=== PATIENT | female | born 1975 ===

== ENCOUNTER 2017-06-21 19:25 | Observation (INO) | payer BC, MEDICAID ==
--- NOTE | 2017-06-21 20:48 | ED PDOC ---
Arrival/HPI - General Time Seen by Provider: 06/21/17 20:13 Historian: Patient - History of Present Illness Narrative History of Present Illness (Text): 06/21/17 20:15 Salvador Gamez is a 41 year old female , whose past medical history includes kidney stones, who presents to the emergency department complaining of right sided coldness/numbness, left sided weakness and "pins and needles" to left leg today. Patient states that she had a pounding headache the night before, took Tylenol, and woke up this morning feeling better. But on the drive to work, symptoms began as a pressure behind her right ear that radiated to the right side of her face. Patient took two tablets of Tylenol at 10:00 this morning to little relief. Patient denies any fever or any other complaints at this time. Time/Duration: 24 hours Symptom Onset: Gradual Symptom Course: Unchanged Activities at Onset: Light Context: Home Past Medical History - Provider Review Nursing Documentation Reviewed: Yes - Infectious Disease Hx of Infectious Diseases: None - Tetanus Immunization Tetanus Immunization: Unknown - Endocrine/Metabolic Hx Hyperthyroidism: Yes - Psychiatric Hx Psychophysiologic Disorder: No Hx Substance Use: No - Past Surgical History Past Surgical History: No Previous - Suicidal Assessment Feels Threatened In Home Enviroment: No Family/Social History - Physician Review Nursing Documentation Reviewed: Yes Family/Social History: No Known Family HX Smoking Status: Never Smoked Hx Alcohol Use: Yes Hx Substance Use: No Hx Substance Use Treatment: No Allergies/Home Meds Allergies/Adverse Reactions: Allergies No Known Allergies Allergy (Verified 06/17/14 13:55) Home Medications: Home Meds Medication Instructions Recorded Confirmed No Known Home Med 02/21/16 02/21/16 Review of Systems - Physician Review All systems were reviewed & negative as marked: Yes - Review of Systems Constitutional: absent: Fevers, Night Sweats Eyes: absent: Vision Changes ENT: absent: Hearing Changes Respiratory: absent: SOB, Cough Cardiovascular: absent: Chest Pain Gastrointestinal: absent: Abdominal Pain Genitourinary Female: absent: Dysuria Musculoskeletal: absent: Arthralgias Skin: absent: Rash Neurological: Other (right sided coldness/numbness, left sided weakness and "pins and needles" to left leg). absent: Headache Endocrine: absent: Diaphoresis Hemo/Lymphatic: absent: Adenopathy Psychiatric: absent: Anxiety, Depression Physical Exam Vital Signs Reviewed: Yes Vital Signs Temp Pulse Resp BP Pulse Ox 06/21/17 21:00 98.1 F 70 18 138/99 H 100 Temperature: Afebrile Blood Pressure: Hypertensive Pulse: Regular Respiratory Rate: Normal Appearance: Positive for: Well-Appearing, Non-Toxic, Comfortable Pain Distress: None Mental Status: Positive for: Alert and Oriented X 3 - Systems Exam Head: Present: Atraumatic, Normocephalic Pupils: Present: PERRL Extroacular Muscles: Present: EOMI Conjunctiva: Present: Normal Mouth: Present: Moist Mucous Membranes Neck: Present: Normal Range of Motion Respiratory/Chest: Present: Clear to Auscultation, Good Air Exchange. No: Respiratory Distress, Accessory Muscle Use Cardiovascular: Present: Regular Rate and Rhythm, Normal S1, S2. No: Murmurs Abdomen: Present: Normal Bowel Sounds. No: Tenderness, Distention, Peritoneal Signs Back: Present: Normal Inspection Upper Extremity: Present: Normal Inspection. No: Cyanosis, Edema Lower Extremity: Present: Normal Inspection. No: Edema Neurological: Present: GCS=15, CN II-XII Intact, Speech Normal, Motor Func Grossly Intact, Normal Sensory Function, Normal Cerebellar Funct, Gait Normal, Memory Normal, Normal 2Pt Descrimination Skin: Present: Warm, Dry, Normal Color. No: Rashes Psychiatric: Present: Alert, Oriented x 3, Normal Insight, Normal Concentration Medical Decision Making ED Course and Treatment: 06/21/17 20:53 Impression: 41 year old complaining of right sided coldness/numbness, left sided weakness and "pins and needles" to left leg today. Differential Diagnosis included but are not limited to: CVA vs TIA vs MS, vs Complex Migraine Plan: -- EKG -- Chest X-ray -- Type and Screen -- Labs -- IV Fluids -- Reassess and disposition Prior Visits: Notes and results from previous visits were reviewed. Patient was last seen in the emergency department on 02/21/16 for intermittent headache. Patient was discharged home. Progress Notes: 06/21/17 21:40 Patient Name: SALVADOR GAMEZ Institution Name: [place] [id number] Study Type: CT HEAD WO Ordered As: CT HEAD W O CODE STROKE IMPRESSION: No acute intracranial abnormality Thank you for allowing us to participate in the care of your patient. Dictated and Authenticated by: Brittany mSith MD 06/21/2017 8:53 PM Eastern Time ([place] & [place]) Case discussed with Dr. Baugh, Neurologist, who agrees patient to be admitted to remote telemetry r/o cva. Recommends aspirin and MRI on admission. 06/21/17 22:[address] Aguero who is covering for Dr. Araiza. Dr. Araiza is covering for the Medical Service. Dr. Aguero recommends Dr. Rogers for Neurology. I explained in detail to the patient the CT results and plan for admission. - Critical Care Critical Care Minutes: 30 minutes - Lab Interpretations Lab Results: 06/21/17 20:50 06/21/17 20:50 Lab Results 06/21/17 21:06: Blood Type Confirm O POSITIVE 06/21/17 20:50: Blood Type O POSITIVE, Antibody Screen Negative, BBK History Checked No verified bt 06/21/17 20:50: Sodium 141, Potassium 3.7, Chloride 105, Carbon Dioxide 26, Anion Gap 14, BUN 10, Creatinine 0.6 L, Est GFR ( Amer) > 60, Est GFR ( Non-Af Amer) > 60, Random Glucose 88, Calcium 9.5, Total Bilirubin 0.4, AST 23, ALT 26, Alkaline Phosphatase 45, Troponin I < 0.01, Total Protein 7.5, Albumin 4.4, Globulin 3.1, Albumin/Globulin Ratio 1.4, Triglycerides 98, Cholesterol 182 , LDL Cholesterol Direct 101, HDL Cholesterol 64 H 06/21/17 20:50: PT 10.5, INR 0.92 L, APTT 35.0 06/21/17 20:50: WBC 5.9, RBC 4.09, Hgb 12.6, Hct 37.5, MCV 91.7, MCH 30.8, MCHC 33.6, RDW 11.8, Plt Count 313, MPV 8.0, Gran % 37.4 L, Lymph % (Auto) 54.2 H, [place] % (Auto) 5.4, Eos % (Auto) 2.5, Baso % (Auto) 0.5, Gran # 2.22, Lymph # ( Auto) 3.2, [place] # (Auto) 0.3, Eos # (Auto) 0.2, Baso # (Auto) 0.03 I have reviewed the lab results: Yes - RAD Interpretation Radiology Orders: 06/21/17 20:34 HEAD W/O (CODE STROKE) [CT] Stat CHEST PORTABLE [RAD] Stat - Medication Orders Current Medication Orders: Sodium Chloride (Sodium Chloride 0.9%) 1,000 mls @ 100 mls/hr IV .Q10H SUMAN Last Admin: 06/21/17 20:53 Dose: 100 mls/hr eMAR Start Stop Document 06/21/17 20:53 RG (Rec: 06/21/17 21:12 RG [id number]) Intravenous Solution Start Date 06/21/17 Start Time 20:53 NIHSS Scale ([place]) Time Performed: 20:13 - How Severe is the Stoke Baseline Level of Consciousness: 0=Alert LOC to Questions: 0=Both comments correct LOC to commands: 0=Obeys both correctly Best Gaze: 0=Normal Visual: 0=No visual loss Facial: 0=Normal Motor Arm - Left: 0=No drift Motor Arm - Right: 0=No drift Motor Leg - Left: 0=No drift Motor Leg - Right: 0=No drift Limb Ataxia: 0=Absent Sensory: 0=Normal Best Language: 0=No aphasia Dysarthia: 0=Normal articulation Extinction & Inattention (Neglect): 0=Normal, no object Score: 0 Risk Level: No Stroke Risk rTPA Inclusion/Exclusion - Refusal of Treatment Patient Refused Treatment: No - Inclusion Criteria for Altepase Patient is 18 years or Older: No The Clinical Diagnosis of Ischemic Stroke That is Causing a Potentially Disabling Neurological Deficit: Yes Time of Onset is Well Established to be Less Than 270 Minute Before Treatment Would Begin: No Risk/Benefit Discussed With Patient/Family Member Present: No - Scribe Statement The provider has reviewed the documentation as recorded by the [place] Rob Provider Scribe Attestation: All medical record entries made by the Scribe were at my direction and personally dictated by me. I have reviewed the chart and agree that the record accurately reflects my personal performance of the history, physical exam, medical decision making, and the department course for this patient. I have also personally directed, reviewed, and agree with the discharge instructions and disposition. Disposition/Present on Arrival - Present on Arrival Any Indicators Present on Arrival: No History of DVT/PE: No History of Uncontrolled Diabetes: No Urinary Catheter: No History Surgical Site Infection Following: None - Disposition Have Diagnosis and Disposition been Completed?: Yes Diagnosis: CVA (cerebral vascular accident) Disposition: HOSPITALIZED Disposition Time: 22:16 Patient Plan: Observation Condition: FAIR Referrals: Rob Edwards, [Primary Care Provider] - Follow up with primary
[2017-06-21] MEDS: Sodium Chloride 0.9% 1,000 ML IV SCH (20:53)
--- NOTE | 2017-06-21 20:54 | CT ---
EXAM: CT Head Without Intravenous Contrast EXAM DATE/TIME: 06/21/2017 8:34 PM CLINICAL HISTORY: 41 years old, female; Pain; Headache; Headache not specified; Additional info: Code stroke TECHNIQUE: Axial computed tomography images of the head/brain without intravenous contrast. All CT scans at this facility use one or more dose reduction techniques, viz.: automated exposure control; ma/kV adjustment per patient size (including targeted exams where dose is matched to indication; i.e. head); or iterative reconstruction technique. Coronal and sagittal reformatted images were created and reviewed. COMPARISON: There are no prior studies for comparison. FINDINGS: Brain: Ventricles are normal in size and configuration. There is no midline shift. There are no intra-axial or extra-axial mass lesions or areas of hemorrhage. There are basal ganglia calcifications bilaterally. There are no abnormal fluid collections. Interiano-white differentiation is maintained. Ventricles: See above. Bones: Cranial vault is intact. Soft tissues: unremarkable Sinuses: There is no acute sinusitis. Ears and mastoids: Middle ears and mastoids are unremarkable Orbits: Orbital contents are unremarkable. IMPRESSION: No acute intracranial abnormality
[2017-06-21 21:08] LABS: BASO # 0.03 K/mm3 (0.0-2.0); BASO % 0.5 % (0.0-3.0); EOS # 0.2 (0.0-0.7); EOS % 2.5 % (1.5-5.0); GRAN # 2.22 (1.4-6.5); GRAN % 37.4 % (50.0-68.0); HEMOGLOBIN 12.6 g/dL (12.0-16.0); LYMPH # 3.2 (1.2-3.4); LYMPH % 54.2 % (22.0-35.0); MEAN CELL VOLUME 91.7 fl (80.0-105.0); MEAN CORPUSCULAR HEMOGLOBIN 30.8 pg (25.0-35.0); MEAN CORPUSCULAR HGB CONC 33.6 g/dl (31.0-37.0); MONO # 0.3 (0.1-0.6); MONO % 5.4 % (1.0-6.0); RBC 4.09 10^6/uL (3.5-6.1); RED CELL DISTRIBUTION WIDTH 11.8 % (11.5-14.5); WHITE BLOOD COUNT 5.9 10^3/ul (4.5-11.0)
[2017-06-21 21:10] LABS: ALB/GLOB RATIO 1.4 (1.1-1.8); ALBUMIN 4.4 g/dL (3.0-4.8); ALT/SGPT 26 U/L (7-56); AST/SGOT 23 U/L (14-36); BLOOD UREA NITROGEN 10 mg/dL (7-21); CALCIUM 9.5 mg/dL (8.4-10.5); GFR AFRICAN-AMERICAN > 60; GFR NON-AFRICAN AMERICAN > 60; HDL CHOLESTEROL 64 mg/dL (29-60)
[2017-06-21 21:21] LABS: LDL CHOLESTEROL 101 mg/dL (0-129)
[2017-06-21 21:24] LABS: TROPONIN I < 0.01 ng/mL
[2017-06-21 21:29] LABS: INR 0.92 (0.93-1.08); PROTHROMBIN TIME 10.5 SECONDS (9.4-12.5)
[2017-06-22 00:08] VITALS: RESP 20
[2017-06-22 01:58] VITALS: BMI 23.4
--- NOTE | 2017-06-22 09:21 | RAD ---
HISTORY: Code Stroke COMPARISON: 02/21/2016 FINDINGS: LUNGS: No active pulmonary disease. PLEURA: No significant pleural effusion identified, no pneumothorax apparent. CARDIOVASCULAR: Normal. OSSEOUS STRUCTURES: Bilateral shoulder arthrosis VISUALIZED UPPER ABDOMEN: Normal. OTHER FINDINGS: None. IMPRESSION: No acute cardiopulmonary pathology noted
[2017-06-22] MEDS ORDERED: Iohexol 350 MG/100 ML VIAL ONE (09:36)
--- NOTE | 2017-06-22 10:02 | CARD ---
APPROVED REPORT EKG Measurement Heart [id number] <Conclusion> Normal sinus rhythm Normal ECG
--- NOTE | 2017-06-22 11:23 | CP.PCM.CON ---
History of Present Illness - History of Present Illness History of Present Illness: 41 yr old woman with a history of migraine, who started to have a headache on Wednesday am, which was 9/10 in nature, with photophobia, nausea not resolved by tylenol, who presented with numbness and tingling of her right arm and leg last night, with no weakness, no visual field cuts. She reports that she has had migraine on and off for many years, but they are becoming more frequent. There is no history of imitrex or topamax use, and no admissions for status migrainosus. PMH/PSH: as above, denies any medical issues. FH/SH: originally from [facility], no tobacco, occasional etoh. Works as [employer], , has one child. All: nkda. On exam: AAOX3. Pupils 3mm-2mm with light. EOMI. Cn 2-12 normal. speech fluent. Motor: tone and strength normal. Sensory intact ft, pin, position sense, vibration sense gait normal +2 dtr ul and ll bl. Toes downgoing. No clonus. Past Patient History - Infectious Disease Hx of Infectious Diseases: None - Tetanus Immunizations Tetanus Immunization: Unknown - Past Social History Smoking Status: Never Smoked - CARDIAC Hx Cardiac Disorders: No - PULMONARY Hx Respiratory Disorders: No - NEUROLOGICAL Hx Neurological Disorder: No - HEENT Hx HEENT Problems: No - RENAL Hx Kidney Stones: Yes - ENDOCRINE/METABOLIC Hx Endocrine Disorders: No Hx Hyperthyroidism: Yes - HEMATOLOGICAL/ONCOLOGICAL Hx Blood Disorders: No - INTEGUMENTARY Hx Dermatological Problems: No - MUSCULOSKELETAL/RHEUMATOLOGICAL Hx Musculoskeletal Disorders: No Hx Falls: No - GASTROINTESTINAL Hx Gastrointestinal Disorders: No - GENITOURINARY/GYNECOLOGICAL Hx Genitourinary Disorders: No - PSYCHIATRIC Hx Psychophysiologic Disorder: No - SURGICAL HISTORY Hx Surgeries: No - ANESTHESIA Hx Anesthesia: No Meds Allergies/Adverse Reactions: Allergies Allergy/AdvReac Type Severity Reaction Status Date / Time No Known Allergies Allergy Verified 06/17/14 13:55 - Medications Medications: Current Medications Acetaminophen (Tylenol 325mg Tab) 650 mg PO Q4H PRN PRN Reason: Pain, Mild (1-3) Aspirin (Ecotrin) 81 mg PO DAILY SUMAN Atorvastatin Calcium (Lipitor) 20 mg PO DIN SUMAN Sodium Chloride (Sodium Chloride 0.9%) 1,000 mls @ 100 mls/hr IV .Q10H SUMAN Last Admin: 06/21/17 20:53 Dose: 100 mls/hr Ketorolac Tromethamine (Toradol) 30 mg IVP Q6 PRN PRN Reason: Pain, severe (8-10) Results - Vital Signs Recent Vital Signs: Last Vital Signs Temp 98.2 F 06/22/17 08:41 Pulse 106 H 06/22/17 08:41 Resp 20 06/22/17 08:41 BP 118/73 06/22/17 08:41 Pulse Ox 100 06/22/17 08:41 - Labs Result Diagrams: 06/21/17 20:50 06/21/17 20:50 - Imaging and Cardiology CT scan - head Status: Image reviewed by me, Report reviewed by me (ct normal ) Assessment & Plan - Assessment and Plan (Free Text) Assessment: 41 yr old woman with complicated migraine, who would benefit from imitrex, toradol and benadrul. She was not a TPA candidate due to resolution of symptoms and low NIH score. We will however, do a complete stroke workup. Plan: 1. Echo, CTA 2. Start imitrex, benadryl, toradol 3. continue aspirin 4. MRI BRain and [facility]. Thank you for this interesting consult. DR. JUAQUIN MD, DPN
--- NOTE | 2017-06-22 13:25 | HP ---
HISTORY OF PRESENT ILLNESS: The patient is 41 years old who started to have headache with right facial numbness, left arm and left leg numbness. Headache that she developed on Wednesday was severe along with nausea. Took some Tylenol with some relief, but because of tingling and numbness in her right face and left leg and arm, she came to the emergency room for evaluation. Denies any weakness. No history of blurry vision. No dizziness. The patient states she has migraine off and on, but did not get for very long time. PAST MEDICAL HISTORY: Not significant for any disease or admission in hospital. SOCIAL HISTORY: She is from [facility]. No smoking, drinking or alcohol use. She is and works as animal sitter. ALLERGIES: SHE IS NOT ALLERGIC TO ANY MEDICATION. MEDICATION AT HOME: She takes Tylenol off and on. REVIEW OF SYSTEMS: Significant for headache. Right facial and left arm and left lower leg numbness, but that is improved since she came in here. PHYSICAL EXAMINATION: GENERAL: She is awake, alert, oriented, communicative. VITAL SIGNS: She is afebrile, pulse 73, respirations 20, blood pressure 118/73. LUNGS: Bilateral good airflow. No rhonchi or crackle. HEART: S1 and S2 audible. ABDOMEN: Soft. Nontender. No rebound. No guarding. NEUROLOGIC: The patient is awake, alert, oriented, communicative. LABORATORY EXAM: WBC is 5.9, hemoglobin 12, hematocrit 37, platelet 313. PT 10.5, INR 0.92. Chemistry: Sodium 141, potassium 3.7, chloride 105, CO2 of 26, BUN 10, creatinine 0.6, blood sugar of 88. ASSESSMENT: 1. Right facial and left upper and lower extremity numbness and tingling. Doubt cerebrovascular accident. 2. Complicated migraine. 3. Rule out panic disorder. PLAN: The patient will be getting MRI, MRA, carotid Doppler and echocardiogram. If the tests were negative, she can be discharged either tonight or tomorrow morning once the results are available. Roxy Araiza MD
--- NOTE | 2017-06-22 16:14 | CT ---
PROCEDURE: CT Angiography of the neck with contrast HISTORY: CVA COMPARISON: None available. TECHNIQUE: Contiguous axial images of the neck were obtained from the level of the skull-base to the superior mediastinum in the arteriographic phase of enhancement. Coronal and sagittal reformats or also generated. IV contrast dose: 150 cc of Omni 350 Radiation Dose - DLP: 364 mGy-cm This CT exam was performed using one or more of the following dose reduction techniques: Automated exposure control, adjustment of the mA and/or kV according to patient size, and/or use of iterative reconstruction technique. FINDINGS: RIGHT CAROTID ARTERIES: Common Carotid Artery: Normal. Carotid Bifurcation: Normal. Internal Carotid Artery:Normal. External Carotid Artery (proximal branches): Normal. LEFT CAROTID ARTERIES: Common Carotid Artery: Normal. Carotid Bifurcation: Normal. Internal Carotid Artery:Normal. External Carotid Artery (proximal branches): Normal. VERTEBRAL ARTERIES: Right Vertebral Artery: Normal. Left Vertebral Artery: Normal. OTHER FINDINGS: None. IMPRESSION: Normal CT Angiography of the neck. CT Angiography of the Brain. HISTORY: CVA COMPARISON: None available. TECHNIQUE: CT angiography of the intracranial arteries was performed. Coronal and sagittal maximum intensity projection reformated images were generated. This CT exam was performed using one or more of the following dose reduction techniques: Automated exposure control, adjustment of the mA and/or kV according to patient size, and/or use of iterative reconstruction technique. FINDINGS: INTERNAL CEREBRAL ARTERIES: Unremarkable. The skull base, petrous, cavernous and supraclinoid segments are bilaterally widely patent. ANTERIOR CEREBRAL ARTERIES: Unremarkable. A1 and A2 segments are widely patent. Smaller distal branches unremarkable, as visualized. MIDDLE CEREBRAL ARTERIES: Unremarkable. M1 and M2 segments are widely patent. Perisylvian branches grossly symmetric. POSTERIOR CIRCULATION: Basilar Artery: Unremarkable. Distal Vertebral Arteries: Unremarkable. Posterior Cerebral Arteries: Unremarkable. Posterior Inferior Cerebellar Arteries: Unremarkable. ANEURYSM/ VASCULAR MALFORMATIONS: None. OTHER FINDINGS: None. IMPRESSION: Unremarkable CT Angiography of the Brain.
--- NOTE | 2017-06-22 16:52 | MRI ---
PROCEDURE: MRI BRAIN WITHOUT CONTRAST HISTORY: CVA COMPARISON: 08/11/2014 MRI TECHNIQUE: Multiplanar, multisequence MR images of the brain were obtained without intravenous contrast enhancement. FINDINGS: HEMORRHAGE: None DWI: No evidence of an acute or early subacute infarction. BRAIN PARENCHYMA: No mass effect or edema. No atrophy or chronic microvascular ischemic changes. VENTRICLES: Unremarkable. No hydrocephalus. CRANIUM: Unremarkable. ORBITS: Grossly unremarkable. PARANASAL SINUSES/MASTOIDS: Clear VASCULAR SYSTEM: Skull base flow voids intact. OTHER FINDINGS: None. IMPRESSION: No acute findings
[2017-06-22] MEDS: Sodium Chloride 0.9% 1,000 ML IV SCH (21:15)
[2017-06-23 08:39] VITALS: BP 129/75; PULSE 74; TEMP 97.9; O2SAT 98
--- NOTE | 2017-06-23 22:36 | CARD ---
APPROVED REPORT EXAM: Two-dimensional and M-mode echocardiogram with Doppler and color Doppler. INDICATION CVA/TIA 2D DIMENSIONS IVSd0.7 (0.7-1.1cm)LVDd4.2 (3.9-5.9cm) PWd0.8 (0.7-1.1cm)LVDs2.9 (2.5-4.0cm) FS (%) 31.2 %LVEF (%)59.4 (>50%) M-Mode DIMENSIONS Aortic Root2.40 (2.2-3.7cm)Aortic Cusp Exc.1.50 (1.5-2.0cm) Aortic Valve AoV Peak Ksmzsnxw072.0cm/Vinicio Peak GR.9mmHg Mitral Valve MV E Bqosbjcx55.8cm/sMV A Eoxluvhs78.8cm/sE/A ratio1.6 TDI Lateral E' Peak V14.80cm/sMedial E' Peak V12.60cm/sE/Lateral E'6.0 E/Medial E'7.0 Pulmonary Valve PV Peak Znapitpt28.7cm/sPV Peak Grad.2mmHg Tricuspid Valve TR Peak Jrdmnpeh444zl/sRAP [id number] Peak Gr.35mmHg [id number] LEFT VENTRICLE The left ventricle is normal size. There is normal left ventricular wall thickness. The left ventricular function is normal.EF-55-60% There is normal LV segmental wall motion. The left ventricular diastolic function is normal. No left ventricle thrombus noted on this study. There is no ventricular septal defect visualized. There is no left ventricular aneurysm. There is no mass noted in the left ventricle. RIGHT VENTRICLE The right ventricle is normal size. There is normal right ventricular wall thickness. The right ventricular systolic function is normal. ATRIA The left atrium is mildly dilated. The right atrium is borderline dilated. The interatrial septum is intact with no evidence for an atrial septal defect. AORTIC VALVE The aortic valve is thickened but opens well. No aortic regurgitation is present. There is no aortic valvular stenosis. There is no aortic valvular vegetation. MITRAL VALVE The mitral valve is thickened but opens well. Mitral regurgitation is mild to moderate. There is no mitral valve stenosis. There is no evidence of mitral valve prolapse. TRICUSPID VALVE The tricuspid valve leaflets are thickened , but open well. There is mild to moderate tricuspid regurgitation.RVSP-45 mmof Hg There is no tricuspid valve stenosis. There is no tricuspid valve prolapse or vegetation. PULMONIC VALVE The pulmonary valve is normal in structure. There is no pulmonic valvular regurgitation. There is no pulmonic valvular stenosis. GREAT VESSELS The aortic root is normal in size. The ascending aorta is normal in size. The pulmonary artery is normal. The IVC is normal in size and collapses >50% with inspiration. PERICARDIAL EFFUSION There is no pleural effusion. There is no pericardial effusion. <Conclusion> The left ventricle is normal size. There is normal left ventricular wall thickness. The left ventricular function is normal.EF-55-60% Mitral regurgitation is mild to moderate. There is mild to moderate tricuspid regurgitation.RVSP-45 mmof Hg There is no pericardial effusionNo thrombus or vegetation noted.
--- NOTE | 2017-06-24 07:04 | DS ---
HOSPITAL COURSE: The patient is 41-year-old, female who came in with headache, facial and left upper and lower extremity numbness. States she feels a lot better, still has a little headache. PHYSICAL EXAMINATION: VITAL SIGNS: She is afebrile, pulse 74, respirations 20 , blood pressure 129/75. LUNGS: Bilateral good airflow. No rhonchi or crackle. HEART: S1 and S2 audible. ABDOMEN: Soft. Nontender. No rebound. No guarding. NEUROLOGIC: The patient is awake, alert, oriented, communicative, ambulatory. LABORATORY DATA: Laboratory exam, her hematology and chemistry results are unremarkable. Now she had MRI of the brain, that is also unremarkable. CT scan of the neck and head is also unremarkable. MRI of the brain is negative and echocardiogram is pending. ASSESSMENT AND PLAN: 1. Probably complicated migraine versus anxiety disorder. 2. History of migraine headache. So, plan is, the patient is being discharged home today on Maxalt-[employer] as needed and Fioricet also as needed for dhnv-br-zllmrrzx pain. She will follow up with her PMD. Roxy Araiza MD
== END 2017-06-23 10:03 | disposition home or self-care (01) ==
LOC: ED 19:25 → ERH 22:16 → 3RNO 06-22 02:22
PROVIDERS: ADMIT Internal Medicine; ATTEND Internal Medicine
DX: G43.109 Migraine with aura, not intractable, without status migrainosus (principal); F41.9 Anxiety disorder, unspecified; Z87.442 Personal history of urinary calculi
CPT/HCPCS: 70450; 70496; 70498; 70551; 71045; 80053; 80061; 83036; 84484; 85025; 85610; 85730; 86850; 86900; 93005; 93306; 99285; G0378; J7040; Q9967

== ENCOUNTER 2018-05-19 13:47 | Emergency (ER) | payer BC ==
[2018-05-19 13:48] VITALS: BMI 23.4
[2018-05-19 13:54] VITALS: RESP 18; TEMP 98.2
[2018-05-19] MEDS ORDERED: Lidocaine 5% Patch TD STA (14:15)
[2018-05-19 14:39] LABS: URINE BILIRUBIN NEGATIVE (NEGATIVE); URINE BLOOD NEGATIVE (NEGATIVE); URINE GLUCOSE (UA) NEGATIVE (NEGATIVE); URINE LEUKOCYTE ESTERASE NEGATIVE Leu/uL (NEGATIVE); URINE PROTEIN NEGATIVE mg/dL (<30 mg/dL); URINE UROBILINOGEN 0.2 E.U./dL (<1 E.U./dL)
[2018-05-19 14:43] LABS: URINE APPEARANCE CLEAR (CLEAR); URINE COLOR YELLOW (YELLOW)
--- NOTE | 2018-05-19 14:57 | ED PDOC ---
Arrival/HPI - General Chief Complaint: Back Pain Time Seen by Provider: 05/19/18 13:54 Historian: Patient - History of Present Illness Narrative History of Present Illness (Text): 05/19/18 14:44 42yo female with no pmhx who present with complaint of lower back pain x 3weeks. Describes pain as crampy and constant. Exacerbated with flexion. States she was seen at 2weeks ago for same complaint and told she have herniated disc. states she was given Naprosyn and muscle relaxer, but she couldn't tolerate it, so she stopped it 3days ago. She denies fever, chills, abdominal pain, urinary symptoms, trauma, focal weakness, urinary/fecal incontinence, saddle anesthesia, hematuria, any other complaint. Past Medical History - Provider Review Nursing Documentation Reviewed: Yes - Infectious Disease Hx of Infectious Diseases: None - Tetanus Immunization Tetanus Immunization: Unknown - Reproductive Currently : No - Cardiac Hx Cardiac Disorders: No - Pulmonary Hx Respiratory Disorders: No - Neurological Hx Neurological Disorder: No - HEENT Hx HEENT Disorder: No - Renal Hx Kidney Stones: Yes - Endocrine/Metabolic Hx Endocrine Disorders: No Hx Hyperthyroidism: Yes - Hematological/Oncological Hx Blood Disorders: No - Integumentary Hx Dermatological Disorder: No - Musculoskeletal/Rheumatological Hx Musculoskeletal Disorders: No Hx Falls: No - Gastrointestinal Hx Gastrointestinal Disorders: No - Genitourinary/Gynecological Hx Genitourinary Disorders: No - Psychiatric Hx Psychophysiologic Disorder: No Hx Substance Use: No - Past Surgical History Past Surgical History: No Previous - Anesthesia Hx Anesthesia: No - Suicidal Assessment Feels Threatened In Home Enviroment: No Family/Social History - Physician Review Nursing Documentation Reviewed: Yes Family/Social History: Unknown Family HX Smoking Status: Never Smoked Hx Alcohol Use: Yes Hx Substance Use: No Hx Substance Use Treatment: No Allergies/Home Meds Allergies/Adverse Reactions: Allergies shellfish derived Allergy (Verified 05/19/18 13:50) RASH food dye Allergy (Uncoded 05/19/18 13:51) RASH Review of Systems - Physician Review All systems were reviewed & negative as marked: Yes - Review of Systems Constitutional: Normal Eyes: Normal ENT: Normal Respiratory: Normal Cardiovascular: Normal Gastrointestinal: Normal Genitourinary Female: Normal Musculoskeletal: Back Pain Skin: Normal Neurological: Normal Endocrine: Normal Hemo/Lymphatic: Normal Psychiatric: Normal Physical Exam Vital Signs Reviewed: Yes Vital Signs Temp Pulse Resp BP Pulse Ox 05/19/18 13:54 98.2 F 83 18 122/78 98 Temperature: Afebrile Blood Pressure: Normal Pulse: Regular Respiratory Rate: Normal Appearance: Positive for: Well-Appearing, Non-Toxic, Comfortable Pain Distress: None Mental Status: Positive for: Alert and Oriented X 3 - Systems Exam Head: Present: Atraumatic, Normocephalic Pupils: Present: PERRL Extroacular Muscles: Present: EOMI Conjunctiva: Present: Normal Mouth: Present: Moist Mucous Membranes Neck: Present: Normal Range of Motion Respiratory/Chest: Present: Clear to Auscultation, Good Air Exchange. No: Respiratory Distress, Accessory Muscle Use Cardiovascular: Present: Regular Rate and Rhythm, Normal S1, S2. No: Murmurs Abdomen: No: Tenderness, Distention, Peritoneal Signs Back: No: Midline Tenderness, Paraspinal Tenderness, Pain with Leg Raise Upper Extremity: Present: Normal Inspection. No: Cyanosis, Edema Lower Extremity: Present: Normal Inspection. No: Edema Neurological: Present: GCS=15, CN II-XII Intact, Speech Normal Skin: Present: Warm, Dry, Normal Color. No: Rashes Psychiatric: Present: Alert, Oriented x 3, Normal Insight, Normal Concentration Medical Decision Making ED Course and Treatment: 05/19/18 19:47 PT in ED for lower back pain. She was neurologically intact and ambulatory in ED. LS xray - IMPRESSION: Unremarkable radiographs of the lumbar spine. Her pain was controlled with medication. She was DC home with Tramadol. Referred to her PMD - Lab Interpretations Lab Results: Urine Color Yellow (YELLOW) 05/19/18 14:30 Urine Appearance Clear (CLEAR) 05/19/18 14:30 Urine pH 6.0 (4.7-8.0) 05/19/18 14:30 Ur Specific [place] >= 1.030 (1.005-1.035) 05/19/18 14:30 Urine Protein Negative mg/dL (<30 mg/dL) 05/19/18 14:30 Urine Glucose (UA) Negative mg/dL (NEGATIVE) 05/19/18 14:30 Urine Ketones Negative mg/dL (NEGATIVE) 05/19/18 14:30 Urine Blood Negative (NEGATIVE) 05/19/18 14:30 Urine Nitrate Negative (NEGATIVE) 05/19/18 14:30 Urine Bilirubin Negative (NEGATIVE) 05/19/18 14:30 Urine Urobilinogen 0.2 E.U./dL (<1 E.U./dL) 05/19/18 14:30 Ur Leukocyte Esterase Negative [place]/uL (NEGATIVE) 05/19/18 14:30 - RAD Interpretation Radiology Orders: 05/19/18 14:13 LS SPINE WITH OBL > 18 YRS OLD [RAD] Stat - Medication Orders Current Medication Orders: Discontinued Medications Diazepam (Valium) 5 mg PO ONCE ONE; Protocol Stop: 05/19/18 14:15 Last Admin: 05/19/18 14:27 Dose: 5 mg Ketorolac Tromethamine (Toradol) 30 mg IM STAT STA Stop: 05/19/18 14:15 Last Admin: 05/19/18 14:30 Dose: 30 mg MAR Pain Assessment Document 05/19/18 14:30 KV (Rec: 05/19/18 14:30 KV [id number]) Pain Reassessment Is this a pain reassessment? No IM Administration Charges Document 05/19/18 14:30 KV (Rec: 05/19/18 14:30 KV [id number]) Injection Site MAR Injection Site Left Arm Charges for Administration # of IM Administrations 1 Lidocaine (Lidoderm) 1 ea TD DAILY STA Stop: 05/19/18 14:16 Last Admin: 05/19/18 14:30 Dose: 1 ea MAR Transdermal Patch Site Document 05/19/18 14:30 KV (Rec: 05/19/18 14:30 KV [id number]) Transdermal Patch Site Transdermal Patch Site Right Lower Back Disposition/Present on Arrival - Present on Arrival Any Indicators Present on Arrival: No History of DVT/PE: No History of Uncontrolled Diabetes: No Urinary Catheter: No History of Decub. Ulcer: No History Surgical Site Infection Following: None - Disposition Have Diagnosis and Disposition been Completed?: Yes Diagnosis: Back pain Disposition: HOME/ ROUTINE Disposition Time: 15:10 Patient Plan: Discharge Condition: STABLE Discharge Instructions (ExitCare): Low Back Pain (DC) Additional Instructions: Follow up with your doctor/orthopedist Return to ED for any new or worsening symptoms Prescriptions: RX: traMADol [Ultram] 50 mg PO TID #9 tab Referrals: FAMILY PROVIDER,NO [Primary Care Provider] - Follow up with primary Forms: [facility] ([place])
--- NOTE | 2018-05-19 15:06 | RAD ---
Date of service: 05/19/2018 PROCEDURE: Radiographs of the Lumbar Spine. HISTORY: back pain COMPARISON: No prior. FINDINGS: BONES: Normal alignment. No listhesis. No fracture. DISC SPACES: Unremarkable. OTHER FINDINGS: None. IMPRESSION: Unremarkable radiographs of the lumbar spine.
[2018-05-19 16:04] VITALS: BP 134/81; PULSE 69; O2SAT 99
== END 2018-05-19 16:19 | disposition home or self-care (01) ==
LOC: ED 13:47
DX: M54.5 Low back pain (principal)
CPT/HCPCS: 72110; 81003; 81025; 96372; 99283; J1885